=== PATIENT | male | born 1960 | race Caucasian/White ===

== ENCOUNTER 2017-03-26 16:19 | Inpatient (IN) | payer OTHER ==
[2017-03-26] VITALS (8 sets, daily range): BP systolic 115–154; BP diastolic 54–97
[~2017-03-26] VITALS: Ht 180.3 cm; Wt 94.3 kg
--- NOTE | 2017-03-26 16:32 | Emergency Room Report ---
History of Present Illness General Chief Complaint: Chest Pain Source: Patient Present Illness HPI 48-year-old male with pmhx of esophageal spasms for 3 years p/w chest pain for 2 days. Chest pain started while he was sitting down yesterday at work, Localized to substernal area, radiating to his left arm, sharp in nature, gradual in onset, lasted 30 minutes min, supple episodes. Denies SOB. Denies palpitations, diaphoresis, n/v. Patient states that at first he thought this was his esophageal spasms, but states that he feels that the pain is different Denies fever, chills, cough, abd pain. Denies trauma. Last stress test was a few months ago which was negative. Patient has never had a cardiac catheterization. Denies smoking, no family history of cardiac disease at a young age. Allergies: Coded Allergies: PENICILLINS (Verified Allergy, Severe, Anaphylaxis, 03/26/17) Patient History Past Medical History: see triage record Past Surgical History: none Pertinent Family History: none Reviewed Nursing Documentation: PMH: Agreed, PSxH: Agreed Review of Systems All Other Systems: negative except mentioned in HPI Physical Exam Vital Signs Date Time Temp Pulse Resp B/P (MAP) Pulse Ox O2 Delivery O2 Flow Rate FiO2 03/26/17 16:24 97.9 67 20 Room Air Sp02 EP Interpretation: reviewed, normal General Appearance: normal inspection, well appearing, no apparent distress, alert, GCS 15, non-toxic Head: normocephalic, atraumatic Eyes: bilateral eye normal inspection, bilateral eye PERRL, bilateral eye EOMI ENT: normal ENT inspection, normal pharynx, normal voice, moist mucus membranes Neck: normal inspection, full range of motion, supple Respiratory: normal inspection, lungs clear, normal breath sounds, no respiratory distress, no retraction, no wheezing, speaking full sentences, chest symmetrical Cardiovascular #1: normal inspection, regular rate, rhythm, no edema, normal capillary refill Cardiovascular #2: 2+ radial (R), 2+ radial (L) Gastrointestinal: normal inspection, non tender, soft, non-distended, no guarding Genitourinary: no CVA tenderness Musculoskeletal: normal inspection, back normal, normal range of motion, non- tender Neurologic: normal inspection, alert, oriented x3, responsive, motor strength/ tone normal, sensory intact, normal gait, speech normal Psychiatric: normal inspection, judgement/insight normal, memory normal Skin: normal inspection, normal color, no rash, warm/dry, well hydrated, normal turgor Medical Decision Making Diagnostic Impression: Primary Impression: Acute coronary syndrome ER Course 48-year-old male presenting with chest pain DDX: ACS vs. CHF vs. pneumonia vs. gastritis/GERD vs. pneumothorax Plan: IV access, obtain labs including troponin, EKG, CXR ASA not given as it was already 325 mg given in the doctor's office Anticipate admission ER course: Labs- Troponin neg Patient has remained on a monitor, HD stable Last BP 140/75 Disposition: Patient requires admission for chest pain. Patient requires admission for further workup, serial troponin, and possible stress test/cath inpatient. D/W hospitalist Dr Jenkins who has accepted patient for admission Please note that this Emergency Department Report was dictated using [employer] technology software, occasionally this can lead to erroneous entry secondary to interpretation by the dictation equipment. Laboratory Tests Test 03/26/17 16:45 White Blood Count 6.0 K/UL (4.8-10.8) Red Blood Count 4.52 M/UL (4.70-6.10) L Hemoglobin 14.8 G/DL (14.2-18.0) Hematocrit 42.3 % (42.0-52.0) Mean Corpuscular Volume 94 FL (80-99) Mean Corpuscular Hemoglobin 32.7 PG (27.0-31.0) H Mean Corpuscular Hemoglobin Concent 34.9 G/DL (32.0-36.0) Red Cell Distribution Width 11.1 % (11.6-14.8) L Platelet Count 203 K/UL (150-450) Mean Platelet Volume 7.6 FL (6.5-10.1) Neutrophils (%) (Auto) 49.2 % (45.0-75.0) Lymphocytes (%) (Auto) 35.8 % (20.0-45.0) Monocytes (%) (Auto) 8.4 % (1.0-10.0) Eosinophils (%) (Auto) 5.8 % (0.0-3.0) H Basophils (%) (Auto) 0.8 % (0.0-2.0) Sodium Level 140 mEQ/L (135-145) Potassium Level 4.1 mEQ/L (3.4-4.9) Chloride Level 100 mEQ/L (98-107) Carbon Dioxide Level 27 mEQ/L (20-30) Anion Gap 13 (5-15) Blood Urea Nitrogen 15 mg/dL (7-23) Creatinine 1.0 mg/dL (0.7-1.2) Estimate Glomerular Filtration Rate > 60 mL/min (>60) Glucose Level 113 mg/dL (74-106) H Calcium Level 9.5 mg/dL (8.6-10.2) Total Bilirubin 0.5 mg/dL (0.0-1.2) Aspartate Amino Transferase (AST) 18 U/L (5-40) Alanine Aminotransferase (ALT) 28 U/L (3-41) Alkaline Phosphatase 91 U/L (40-129) Total Creatine Kinase 117 U/L (38-174) Creatine Kinase MB 2.5 ng/mL (< 6.7) Creatine Kinase MB Relative Index 2.1 Troponin I < 0.30 ng/mL (<=0.30) Pro-B-Type Natriuretic Peptide 57 pg/mL (0-125) Total Protein 7.1 g/dL (6.6-8.7) Albumin 4.7 g/dL (3.5-5.2) Globulin 2.4 g/dL Albumin/Globulin Ratio 1.9 (1.0-2.7) EKG Diagnostic Results Rhythm: NSR ST Segments: other - mild concave morphology JOHN lead III and AVF only, no recip changes ASA given to the pt in ED: Yes Rhythm Strip Diag. Results EP Interpretation: yes Rate: 65 Rhythm: NSR, no PVC's, no ectopy Chest X-Ray Diagnostic Results Chest X-Ray Diagnostic Results : Chest X-Ray Ordered: Yes # of Views/Limited/Complete: 1 View Indication: Chest Pain EP Interpretation: Yes Interpretation: no consolidation, no effusion, no pneumothorax, no acute cardiopulmonary disease Impression: No acute disease Electronically Signed by: Electronically signed by Foreign Kendall MD Last Vital Signs Date Time Temp Pulse Resp B/P (MAP) Pulse Ox O2 Delivery O2 Flow Rate FiO2 03/26/17 16:24 97.9 67 20 Room Air Disposition: ADMITTED INPATIENT Condition: Serious Foreign Kendall M.D. Mar 26, 2017 16:31
[2017-03-26 17:10] LABS: BASOPHILS % (AUTO) 0.8 % (0.0-2.0); EOSINOPHILS % (AUTO) 5.8 % (0.0-3.0); LYMPHOCYTES % (AUTO) 35.8 % (20.0-45.0); MEAN CORPUSCULAR HEMOGLOBIN 32.7 PG (27.0-31.0); MEAN CORPUSCULAR HGB CONC 34.9 G/DL (32.0-36.0); MEAN CORPUSCULAR VOLUME 94 FL (80-99); MEAN PLATELET VOLUME 7.6 FL (6.5-10.1); MONOCYTES % (AUTO) 8.4 % (1.0-10.0); NEUTROPHILS % (AUTO) 49.2 % (45.0-75.0); PLATELET COUNT 203 K/UL (150-450); RED BLOOD COUNT 4.52 M/UL (4.70-6.10); RED CELL DISTRIBUTION WIDTH 11.1 % (11.6-14.8)
[2017-03-26] MEDS ORDERED: LIPITOR80 MG ORAL (17:12)
[2017-03-26] MEDS ORDERED: CARVEDILOL3.125 MG ORAL (17:12)
[2017-03-26] MEDS ORDERED: NAPROXEN250 M1 PO (17:12)
[2017-03-26] MEDS ORDERED: COUMADIN2 MG ORAL (17:12)
[2017-03-26] MEDS ORDERED: OMEGA 3 1,0001 EACH PO (17:12)
[2017-03-26 17:23] LABS: TROPONIN I < 0.30 ng/mL (<=0.30)
[2017-03-26 17:27] LABS: ALANINE AMINOTRANSFERASE 28 U/L (3-41); ALBUMIN/GLOBULIN RATIO 1.9 (1.0-2.7); ANION GAP 13 (5-15); ASPARTATE AMINO TRANSFERASE 18 U/L (5-40); CALCIUM 9.5 mg/dL (8.6-10.2); CARBON DIOXIDE 27 mEQ/L (20-30); CHLORIDE 100 mEQ/L (98-107); GLOMERULAR FILTRATION RATE > 60 mL/min (>60); HEMOLYSIS 4; POTASSIUM 4.1 mEQ/L (3.4-4.9); SODIUM 140 mEQ/L (135-145); TOTAL PROTEIN 7.1 g/dL (6.6-8.7)
[2017-03-26 17:37] LABS: CKMB 2.5 ng/mL (< 6.7)
[2017-03-26] MEDS ORDERED: LOSARTAN POTASS50 MG ORAL (17:58)
[2017-03-26] MEDS ORDERED: TRUVADA1 TAB ORAL (17:58)
[2017-03-26] MEDS ORDERED: ATORVASTATIN CA10 MG ORAL (17:58)
[2017-03-26] MEDS ORDERED: DuoNeb 0.5-3(2.5)mg/3ml neb HHN PRN (18:45)
[2017-03-26] MEDS ORDERED: Miralax 17gm pkt ORAL PRN (18:45)
[2017-03-26] MEDS ORDERED: Ketorolac 30mg Inj IV PRN (18:45)
[2017-03-26] MEDS ORDERED: Nitroglycerin Subl 0.4mg tab (Bottle Of 25) SL PRN (18:45)
[2017-03-26] MEDS ORDERED: Diltiazem 25mg/5ml IV PRN (18:45)
[2017-03-26] MEDS ORDERED: Enalaprilat 2.5mg/2ml Inj IV PRN (18:45)
[2017-03-26] MEDS ORDERED: Morphine Sulfate 2mg/ml Inj IVP PRN (18:45)
[2017-03-26] MEDS: Heparin 5000 units/ml inj SUBQ SCH (20:49)
[2017-03-26 21:59] LABS: TROPONIN I < 0.30 ng/mL (<=0.30)
[2017-03-27 03:56] VITALS: BP 129/76
[2017-03-27 06:46] LABS: EOSINOPHILS % (AUTO) 6.9 % (0.0-3.0); LYMPHOCYTES % (AUTO) 46.4 % (20.0-45.0); MEAN CORPUSCULAR HEMOGLOBIN 31.9 PG (27.0-31.0); MEAN CORPUSCULAR HGB CONC 34.3 G/DL (32.0-36.0); MEAN CORPUSCULAR VOLUME 93 FL (80-99); MEAN PLATELET VOLUME 7.1 FL (6.5-10.1); MONOCYTES % (AUTO) 9.2 % (1.0-10.0); NEUTROPHILS % (AUTO) 36.6 % (45.0-75.0); PLATELET COUNT 184 K/UL (150-450); RED BLOOD COUNT 4.54 M/UL (4.70-6.10); RED CELL DISTRIBUTION WIDTH 11.1 % (11.6-14.8)
[2017-03-27 07:00] LABS: INR 0.9 (0.9-1.1); PROTHROMBIN TIME 9.6 SEC (9.30-11.50)
[2017-03-27 07:11] LABS: TROPONIN I < 0.30 ng/mL (<=0.30)
[2017-03-27 07:21] LABS: CHOLESTEROL/HDL RATIO 3.1 (3.3-4.4); CRP QUANT 2.8 mg/dL (< 0.5)
[2017-03-27 07:23] LABS: THYROID STIMULATING HORMONE 1.23 uIU/mL (0.300-4.500)
[2017-03-27 08:00] VITALS: BP 125/77
[2017-03-27 08:51] VITALS: BP 125/77
[2017-03-27] MEDS: Heparin 5000 units/ml inj SUBQ SCH (08:52)
[2017-03-27] MEDS ORDERED: Aspirin Baby 81mg ORAL SCH (09:00)
[2017-03-27] MEDS ORDERED: Losartan 50mg tab ORAL SCH (09:00)
--- NOTE | 2017-03-27 10:38 | Diagnostic Imaging Report ---
Indication: PAIN Technique: One view of the chest Comparison: none Findings: Lungs and pleural spaces are clear. Heart size is normal. Impression: No acute process
--- NOTE | 2017-03-29 15:57 | Cardiology Report ---
APPROVED REPORT EKG Measurement Heart [id number] Normal sinus rhythm Normal ECG
--- NOTE | 2017-03-30 09:59 | Discharge Summary ---
Discharge Summary Hospital Course Date of Admission Mar 26, 2017 at 17:07 Date of Discharge Mar 27, 2017 at 09:46 Admitting Diagnosis acs HPI Taiwo Villagran is a 56 year old male who was admitted on Mar 26, 2017 at 17: 07 for Acute Coronary Syndrome Hospital Course dc summary #[id number] Discharge Discharge Disposition Patient signed AMA Discharge Diagnoses: Discharge Instructions Discharge Instructions Special Instructions I have been assigned to complete a D/C Summary on this account. I was not involved in the patient management Kimberly Barnard NP (Vanchtein) Mar 30, 2017 09:59
== END 2017-03-27 09:46 | disposition left against medical advice (07) | DRG 311 ==
LOC: EMR 16:50 → 2E 17:07 → EDBEDREQ 18:05
DX: I24.9 Acute ischemic heart disease, unspecified (principal); Z88.0 Allergy status to penicillin
CPT/HCPCS: 36415; 71010; 80053; 80061; 82550; 82553; 83880; 84443; 84484; 85025; 85610; 85730; 86140; 93005; 94664; 99285

== ENCOUNTER 2020-01-17 09:39 | Day surgery (SDC) | payer OTHER ==
[2020-01-17] VITALS (8 sets, daily range): BP systolic 117–145; BP diastolic 66–88
[~2020-01-17] VITALS: Ht 180.3 cm; Wt 96.2 kg
--- NOTE | 2020-01-17 07:05 | Pre-Procedure Note/Attestation ---
Pre-Procedure Note/Attestation Complete Prior to Procedure Planned Procedure: right Procedure Narrative: rt knee scope, medial meniscectomy Indications for Procedure Pre-Operative Diagnosis: rt knee medial meniscus tear Attestation I attest that I discussed the nature of the procedure; its benefits; risks and complications; and alternatives (and the risks and benefits of such alternatives ), prior to the procedure, with the patient (or the patient's legal data entry representative). I attest that, if there was a reasonable possibility of needing a blood transfusion, the patient (or the patient's legal data entry representative) was given the [facility] standardized written summary, pursuant to the Jj Lenora Blood Safety Act ([place] Health and Safety Code # 1645, as amended). I attest that I re-evaluated the patient just prior to the surgery and that there has been no change in the patient's H&P, except as documented below: NONE Giovany Agrawal MD Jan 17, 2020 07:05
[~2020-01-17 09:39] MED LIST: ATORVASTATIN CA10 MG ORAL; CARVEDILOL3.125 MG ORAL; COUMADIN2 MG ORAL; Clindamycin 600mg/D5W 50ml IV ONE; LIPITOR80 MG ORAL; LOSARTAN POTASS50 MG ORAL; NAPROXEN250 M1 PO; OMEGA 3 1,0001 EACH PO; OMEPRAZOLE40 M1 ORAL; TRUVADA1 TAB ORAL; celeBREX 200mg Cap **SURGERY PATIENTS ONLY ORAL ONE; oxyCONTIN 10mg tab ORAL ONE
[2020-01-17] MEDS ORDERED: Midazolam 2mg/2ml Inj ONE (10:26)
[2020-01-17] MEDS ORDERED: fentaNYL 100 mcg/2 mL IV ONE (10:26)
[2020-01-17] MEDS ORDERED: Lidocaine 1% MPF 10mg/ml 5ml ONE (10:29)
[2020-01-17] MEDS ORDERED: oxyCONTIN 10mg tab ORAL ONE (10:32)
[2020-01-17] MEDS ORDERED: celeBREX 200mg Cap **SURGERY PATIENTS ONLY ORAL ONE (10:32)
[2020-01-17] MEDS ORDERED: Ropivacaine 5mg/ml Vial 20ml INJ ONE (10:46)
[2020-01-17] MEDS ORDERED: Vancomycin 1gm vial IVPB ONE (10:46)
[2020-01-17] MEDS ORDERED: KLONOPIN1 MG ORAL (11:11)
[2020-01-17] MEDS ORDERED: NASACORT10.8 ML NS (11:13)
[2020-01-17] MEDS ORDERED: HYDROmorphone 1mg/ml Carpuject SUBQ PRN (11:30)
[2020-01-17] MEDS ORDERED: HYDROcodone/Acetamin 5/325 tab ORAL PRN (11:30)
[2020-01-17] MEDS ORDERED: Tylenol #3 tab (300mg/30mg) ORAL PRN (11:30)
[2020-01-17] MEDS ORDERED: NS Irrig 2000ml IRRIG ONE (12:00)
[2020-01-17] MEDS ORDERED: LR 1000ml ONE (12:00)
[2020-01-17] MEDS ORDERED: LR 1000ml 1,000 ML IVLG SCH (12:38)
--- NOTE | 2020-01-17 12:38 | Anethesia Preoperative Eval ---
Anesthesia Pre-op PMH/ROS General Date of Evaluation: Jan 17, 2020 Time of Evaluation: 11:50 Anesthesiologist: Jong ASA Score: ASA 2 Mallampati Score Class I : Soft palate, uvula, fauces, pillars visible Class II: Soft palate, uvula, fauces visible Class III: Soft palate, base of uvula visible Class IV: Only hard plate visible Mallampati Classification: Class II Surgeon: Tanja Diagnosis: R knee pain Surgical Procedure: R knee scope Anesthesia History: none Family History: no anesthesia problems Allergies: Coded Allergies: PENICILLINS (Verified Allergy, Severe, Anaphylaxis, 03/26/17) Cat Dander (Verified Allergy, Unknown, 03/27/17) Medications: see eMAR Patient NPO?: Yes Past Medical History Cardiovascular: Reports: HTN - stable; Denies: CAD, [place], valve dz, arrhythmia, other Pulmonary: Denies: asthma, COPD, ALEXIA, other Gastrointestinal/Genitourinary: Reports: GERD; Denies: CRI, ESRD, other Neurologic/Psychiatric: Reports: depression/anxiety; Denies: dementia, CVA, TIA, other Endocrine: Denies: DM, hypothyroidism, steroids, other HEENT: Denies: cataract (L), cataract (R), glaucoma, [place] (L), [place] (R), other Hematology/Immune: Denies: anemia, DVT, bleeding disorder, other Musculoskeletal/Integumentary: Denies: OA, RA, DJD, DDD, edema, other Other: other - overweight PMH Narrative: as above PSxH Narrative: T&A as a kid Anesthesia Pre-op Phys. Exam Physician Exam Last Vital Signs Date Time Temp Pulse Resp B/P (MAP) Pulse Ox O2 Delivery O2 Flow Rate FiO2 01/17/20 10:45 Room Air 01/17/20 10:21 98.3 76 18 145/81 96 Constitutional: NAD Neurologic: CN 2-12 intact Cardiovascular: RRR, no M/R/G Respiratory: CTA Gastrointestinal: S/NT/ND Airway Exam Mallampati Score: Class II MO: full Neck: flexible ROM: full Teeth: intact Dentures: no upper, no lower Anesthesia Pre-op A/P Labs see chart Studies Pre-op Studies: EKG - NSR Risk Assessment & Plan Assessment: ASA 2 Plan: GA with LMA Status Change Before Surgery: No Pre-Antibiotics Drug: Vancomycin 1gr Given Within 1 Hr of Incision: Yes Time Given: 12:28 Humphrey Sunshine MD Jan 17, 2020 12:38
[2020-01-17] MEDS ORDERED: DiphenhydrAMINE 50mg/ml Inj IVP PRN (12:45)
[2020-01-17] MEDS ORDERED: Hydromorphone 0.5mg/0.5ml inj IVP PRN (12:45)
[2020-01-17] MEDS ORDERED: Ketorolac 30mg Inj ONE (12:46)
--- NOTE | 2020-01-17 12:56 | Brief Operative Note ---
Immediate Post Operative Note Operative Note Chief Complaint: rt knee pain Pre-op Diagnosis: rt knee medial meniscus tear Procedure: rt knee scope, medial and lateral meniscectomy with chondroplasty Post-op Diagnosis: same as pre-op Findings: consistent w/pre-op dx studies Surgeon: md rama Vacuum Truck Driver: claire quick Anesthesiologist: md leslee Anesthesia: general Specimen: none Complications: none Condition: stable Fluids: ns Estimated Blood Loss: minimal Drains: none Implant(s) used?: No Giovany Agrawal MD Jan 17, 2020 12:56
--- NOTE | 2020-01-17 13:06 | Immediate Post-Op Evaluation ---
Immediate Post-Op Evalulation Immediate Post-Op Evalulation Procedure: R knee arthroscopy, medial meniscectomy Date of Evaluation: Jan 17, 2020 Time of Evaluation: 13:05 IV Fluids: 1000 Blood Products: none Estimated Blood Loss: min Urinary Output: none Blood Pressure Systolic: 142 Blood Pressure Diastolic: 76 Pulse Rate: 72 Respiratory Rate: 20 O2 Sat by Pulse Oximetry: 99 Temperature (Fahrenheit): 97.8 Pain Score (1-10): 1 Nausea: No Vomiting: No Complications none Patient Status: awake, patent, none Hydration Status: adequate Humphrey Sunshine MD Jan 17, 2020 13:06
--- NOTE | 2020-01-17 13:38 | 48 Hour Post Anesthesia Eval ---
Post Anesthesia Evaluation Procedure: R knee arthroscopy, medial meniscectomy Date of Evaluation: Jan 17, 2020 Time of Evaluation: 13:37 Blood Pressure Systolic: 134 0: 72 Pulse Rate: 68 Respiratory Rate: 18 Temperature (Fahrenheit): 97.8 O2 Sat by Pulse Oximetry: 99 Airway: patent Nausea: No Vomiting: No Pain Intensity: 1 Hydration Status: adequate Cardiopulmonary Status: STABLE Mental Status/LOC: patient returned to baseline Follow-up Care/Observations: n/a Post-Anesthesia Complications: none Follow-up care needed: ready to discharge Humphrey Sunshine MD Jan 17, 2020 13:38
--- NOTE | 2020-01-17 16:30 | Operative Note - Dictated ---
DATE OF OPERATION: 01/17/2020 PREOPERATIVE DIAGNOSIS: Right knee posterior horn medial meniscus tearing. POSTOPERATIVE DIAGNOSES: 1. Right knee complex tear posterior horn and body of the medial meniscus involving 30% of the undersurface of the medial meniscus. 2. Right knee lateral meniscus tearing at the posterior horn of the lateral meniscus involving 15% lateral meniscus. 3. 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 PROCEDURE: 1. Right knee arthroscopy and extensive intraarticular shaving. 2. Right knee patellofemoral chondroplasty. 3. Right knee partial lateral meniscectomy involving 15% lateral meniscus. 4. Right knee partial medial meniscectomy involving 25% of the undersurface of the posterior horn and body of the medial meniscus. SURGEON: Giovany Agrawal MD. RETAIL MAINTENANCE TECHNICIAN: Edith Deng PA-C. Vascular Technologist Sonographer was present during the actual operative portion of the case and was important and essential part of the operation. During the operation, the assistant prosecuting attorney held and operated the arthroscopic camera for visualization, assisted by manipulating the leg to help with visualization, and helped with essential parts of the repair process as necessary such as operating surgical instruments under surgeon supervision, suture management, and wound closures. ANESTHESIOLOGIST: Humphrey Sunshine MD. ANESTHESIA: General LMA anesthesia. TOURNIQUET TIME: 25 minutes. EBL: Minimal. COMPLICATIONS: None. SURGICAL INDICATION: Patient is a 59-year-old male who sustained the above injury to his knee. The patient was treated non-operative initially, but this did not alleviate the patients symptoms. Therefore, after discussing all non-surgical and surgical options, and discussing all foreseeable risk and benefits of surgery, the patient opted for surgical treatment as described above. PATIENT POSITIONING: Patient was brought to the operating room table and placed supine. All pressure points were well padded. Time out was performed and preop antibiotics were given. General Anesthesia was induced and a well padded tourniquet was placed on the thigh. The lateral post was placed and positioned to allow for opening of the medial compartment of the knee without placing pressure over the fibular head. Patients entire leg was prepped and draped in the usual sterile fashion. Time out was performed and preoperative antibiotics were given and after exsanguinating the lower extremity, the tourniquet was inflated to 275mm of mercury. EXAMINATION OF THE KNEE UNDER ANESTHESIA: Before prepping and draping the knee and while the patient was relaxed under general anesthesia, the knee was examined for ROM, and anterior and posterior, medial and lateral, posterolateral, and posteromedial instability. Pivot shift testing was performed. There was no evidence of loss of motion or instability and the pivot shift testing was negative. PORTAL PLACEMENT: The lateral portal was placed with the knee flexed to 90 degrees at the level of inferior border of the patella in line with the lateral border of the patella. A cm skin incision was made with an eleven blade, and using a blunt obturator, the capsule was gently penetrated. Sterile saline solution was then infused inside the knee with the aid of a pump set at 35 mm mercury pressure. Under direct visualization, placement of the medial portal was preliminary judged using a spinal needle, and it was subsequently established using the same technique as the lateral portal. Care was given not to injure the cutaneous branches of the medial Saphenous nerve or the subcutaneous veins. DIAGNOSTIC ARTHROSCOPY: The suprapatellar patellar pouch was visualized. There was no evidence of scar tissue or loose fragments. The medial and lateral patellar facets and trochlear groove articular cartilage was visualized. There was some grade 3 chondromalacia of the medial lateral patellar facets with unstable chondral flaps. The trochlea was intact. The medial plica shelf and the corresponding medial femoral condyle articular cartilage were visualized. There was no significantly thickening of the medial plica shelf and there were no kissing? lesion over the medial femoral condyle. The lateral gutter and the posterolateral corner of the knee were visualized. There were no loose bodies, and the popliteus tendon and other structures of the posterolateral corner of the knee were intact intra-articularly. At this point, the knee was placed in the figure of four position and the lateral compartment was entered. The lateral femoral condyle, lateral tibial plateau, and the anterior, body, and the posterior horn of the lateral meniscus were visualized and probed. The articular surfaces were intact and devoid of articular cartilage damage. There was a tear of the posterior horn of the medial meniscus right at the meniscus root; however, the meniscus root was stable. This involved 15% of the lateral meniscus. The knee was then placed at 90 degree and the ACL and PCL were visualized and probed. The ACL was completely intact on visualization and probing, and it had excellent tension. The PCL was completely intact on visualization and probing and it had excellent tension. The medial compartment was then entered and the medial femoral condyle, medial tibial plateau, and the anterior, body, and the posterior horn of the medial meniscus were visualized and probed. The articular surfaces were intact and devoid of articular cartilage damage. There was a complex tear of the posterior horn and body medial meniscus with horizontal cleavage tear with unstable inferior leaflet. This involved 25% of the posterior horn body medial meniscus. The medial gutter was visualized. There was no evidence of defect or loose fragments. The scope was then brought back to the patella femoral compartment. OPERATIVE ARTHROSCOPY: At this point, all loose debris and fragments were removed with the use of suction motorized shaver. Specific attention was given to assure all visible loose fragments were irrigated out of the knee joint with pump inflow and cannula outflow system. The frayed articular cartilage of the undersurface of the patella and the trochlear groove were debrided using a motorized shaver. Suction was used to pull in the loose fragments and flaps of the cartilage and to minimize damage to the intact and well attached portion of the cartilage. This allowed for a smooth surface for the articular cartilage gliding. At this point, attention was given to the lateral meniscus. Using combination of baskets and david, the torn portion of the lateral meniscus was removed. Attention was given to remove all displaced and unstable portion of the lateral meniscus while maintaining as much of the functional portion of the meniscus as possible. Approximately, 15% of the posterior horn of the meniscus was removed in this fashion. The transition between the meniscectomy portion and intact portion of the meniscus was smoothed out with combination of small baskets and david. Excellent transition zone was obtained in this fashion. At this point, attention was given to the medial meniscus. Using combination of baskets and david, the torn portion of the medial meniscus was removed. Attention was given to remove all displaced and unstable portion of the medial meniscus while maintaining as much of the functional portion of the meniscus as possible. Approximately, 25% of the posterior horn and body on inferior leaflet of the medial meniscus was removed in this fashion. The transition between the meniscectomy portion and intact portion of the meniscus was smoothed out with combination of small baskets and david. Excellent transition zone was obtained in this fashion. CONDITION AT DISCHARGE FROM OPERATING ROOM: The knee was irrigated with copious amount of normal saline at the end of the procedure. The scope was removed and the water was drained. The skin edges were re-approximated and sterile dressing was applied. All lap count and instrument counts were correct. Patient tolerated the procedure well without complications and was taken to the recovery room in stable conditions. Giovany Agrawal M.D. DR: LAWSON JOB#: [id number] CC:
[2020-01-17] MEDS ORDERED: D5 1/2NS 1,000 ML IV SCH (17:00)
== END 2020-01-17 14:25 | disposition home or self-care (01) ==
LOC: SUR 09:39
DX: S83.231A Complex tear of medial meniscus, current injury, right knee, initial encounter (principal); S83.281A Other tear of lateral meniscus, current injury, right knee, initial encounter; X58.XXXA Exposure to other specified factors, initial encounter; Y92.9 Unspecified place or not applicable; M22.41 Chondromalacia patellae, right knee; Z79.82 Long term (current) use of aspirin; Z79.899 Other long term (current) drug therapy; I10 Essential (primary) hypertension; E78.00 Pure hypercholesterolemia, unspecified; F41.9 Anxiety disorder, unspecified; K21.9 Gastro-esophageal reflux disease without esophagitis; Z88.0 Allergy status to penicillin; F32.9 Major depressive disorder, single episode, unspecified; E66.3 Overweight; Z68.29 Body mass index [BMI] 29.0-29.9, adult
CPT/HCPCS: 29880; 94003; J1885; J2250; J2704; J2795; J3010; J3370; J7120; 94150